=== PATIENT | female | born 1985 | race Caucasian/White ===

== ENCOUNTER 2020-10-31 21:34 | Emergency (ER) | payer MEDICAID ==
[~2020-10-31] VITALS: Ht 152.4 cm; Wt 81.8 kg
[2020-10-31 22:18] VITALS: BP 134/85; Ht 152.4 cm; Wt 81.8 kg
[2020-10-31 23:25] LABS: HCG URINE NEGATIVE (NEGATIVE)
[2020-11-01] MEDS ORDERED: HYDROCODONE-AC1 EAC2 PO (00:08)
[2020-11-01] MEDS ORDERED: CLEOCIN HCL300 MG PO (00:08)
[2020-11-01] MEDS ORDERED: ZOFRAN ODT4 MG/UDTAB PO (00:23)
== END 2020-11-01 00:31 | disposition home or self-care (01) ==
LOC: D.ER 21:34
PROVIDERS: Family Medicine
DX: K04.7 Periapical abscess without sinus (principal); S01.01XA Laceration without foreign body of scalp, initial encounter; T76.91XA Unspecified adult maltreatment, suspected, initial encounter; Y00.XXXA Assault by blunt object, initial encounter; Y93.9 Activity, unspecified; Y92.9 Unspecified place or not applicable

== ENCOUNTER 2020-12-14 20:32 | Emergency (ER) | payer MEDICAID ==
[~2020-12-14] VITALS: Ht 152.4 cm; Wt 81.8 kg
[~2020-12-14 20:32] MED LIST: CLEOCIN HCL300 MG PO; HYDROCODONE-AC1 EAC2 PO; ZOFRAN ODT4 MG/UDTAB PO
[2020-12-14 20:46] VITALS: Ht 152.4 cm; Wt 81.8 kg
[2020-12-14] MEDS ORDERED: TORADOL10 MG PO (23:17)
[2020-12-14 23:20] VITALS: BP 140/90
== END 2020-12-14 23:20 | disposition home or self-care (01) ==
LOC: D.ER 20:32
DX: S00.83XA Contusion of other part of head, initial encounter (principal); T14.8XXA Other injury of unspecified body region, initial encounter; S50.12XA Contusion of left forearm, initial encounter; Y09 Assault by unspecified means